=== PATIENT | male | born 1960 | race Caucasian/White ===

== ENCOUNTER 2018-11-15 10:14 | Emergency (ER) | payer BC ==
[~2018-11-15] VITALS: Ht 185.4 cm; Wt 90.9 kg
[2018-11-15 10:19] VITALS: BP 177/86; TEMP 97.3
[2018-11-15] MEDS ORDERED: OMNICEF 300MG300 MG PO (11:27)
[2018-11-15] MEDS ORDERED: TUSS PO (11:27)
[2018-11-15 11:47] VITALS: PULSE 77
== END 2018-11-15 11:48 | disposition home or self-care (01) ==
LOC: COL.ER 10:14
DX: J20.9 Acute bronchitis, unspecified (principal); H66.92 Otitis media, unspecified, left ear